=== PATIENT | male | born 1990 | race Two or more races ===

== ENCOUNTER 2025-03-13 00:55 | Emergency (ER) | payer OTHER ==
[~2025-03-13] VITALS: Ht 165.1 cm; Wt 62.1 kg
[2025-03-13] MEDS ORDERED: KEPPRA100 MG/1 M (01:11)
[2025-03-13] MEDS ORDERED: SEROQUEL25 MG (01:12)
[2025-03-13] MEDS ORDERED: LIDOCAINE HCL 1% 10ML VIAL ONE (02:01)
[2025-03-13] MEDS ORDERED: DIPHTH,PERTUSS(ACELL),TET VAC 0.5 ML SYRINGE IM ONE (02:53)
== END 2025-03-13 03:06 | disposition home or self-care (01) ==
LOC: ER 00:55
DX: S01.81XA Laceration without foreign body of other part of head, initial encounter (principal); X99.1XXA Assault by knife, initial encounter; Y93.89 Activity, other specified; Y92.89 Other specified places as the place of occurrence of the external cause; Y99.8 Other external cause status